=== PATIENT | male | born 1965 | race Caucasian/White ===

== ENCOUNTER → 2020-11-11 | Outpatient (CLI) | payer OTHER ==
[~2020-11-11] MED LIST: AMLO5TAB4 PO; OXYC1TAB14 PO
== END | disposition home or self-care (01) ==
LOC: CVU 09:21
PROVIDERS: ATTEND Internal Medicine Cardiovascular Disease
DX: R06.02 Shortness of breath (principal)
CPT/HCPCS: 93306; 93356